=== PATIENT | male | born 1955 | race African-American/Black ===

== ENCOUNTER 2020-02-03 11:33 | Inpatient (IN) | payer MEDICARE, OTHER ==
[~2020-02-03] VITALS: Ht 175.3 cm; Wt 121.1 kg
[2020-02-03 12:16] LABS: CLARITY URINE CLOUDY (CLEAR); COLOR URINE DARK YELLOW (YELLOW); KETONES URINE NEGATIVE (NEGATIVE); LEUKOCYTE ESTERASE URINE 3+ (NEGATIVE); NITRITE URINE NEGATIVE (NEGATIVE); OCCULT BLOOD URINE NEGATIVE (NEGATIVE); PH URINE 5.5 (4.5-8.0); PROTEIN URINE TRACE (NEGATIVE); SPECIFIC GRAVITY URINE 1.012 (1.005-1.030)
[2020-02-03 13:02] LABS: BASOPHILS % 0.7 % (0.0-2.0); EOSINOPHILS % 5.4 % (0.0-5.0); HEMATOCRIT. 26.5 % (42.0-52.0); HEMOGLOBIN. 8.9 g/dL (14.0-18.0); LYMPHOCYTES % 20.6 % (20.0-50.0); MEAN CORPUSCULAR VOLUME 88.9 fL (80.0-94.0); MEAN PLATELET VOLUME 8.2 fl (7.4-10.4); MONOCYTES % 10.4 % (2.0-8.0); NEUTROPHILS % 62.9 % (40.0-76.0); PLATELET 142 x1000/uL (130-400); RED BLOOD CELL COUNT 2.98 mill/uL (4.7-6.1); RED CELL DISTRIBUTION WIDTH 15.6 % (11.6-14.6)
[2020-02-03 13:10] LABS: CHLORIDE 108 mEq/L (98-107)
[2020-02-03 13:13] LABS: INR 1.1
[2020-02-03] MEDS ORDERED: SODIUM CHLORIDE 0.9% 500 ML IV ONE (13:15)
[2020-02-03] MEDS ORDERED: FLUCONAZOLE 100MG TABLET PO ONE (13:15)
[2020-02-03] MEDS ORDERED: CEFTRIAXONE 1 G PREMIX 50 ML IV ONE (13:15)
[2020-02-03] MEDS ORDERED: ONDANSETRON HCL 4MG/2ML INJ IV PRN (15:45)
[2020-02-03] MEDS ORDERED: CEFTRIAXONE 1 G PREMIX 50 ML IV SCH (15:45)
[2020-02-03] MEDS ORDERED: POTASSIUM CHLORIDE INJ 40 MEQ in DEXT 5% WATER 250 ML IV NR (17:00)
[2020-02-03] MEDS: PANTOPRAZOLE SODIUM 40 MG/VIAL IV SCH (22:00)
[2020-02-04] MEDS ORDERED: DEXTROSE 50% WATER 50ML SYRINGE IV PRN (00:15)
[2020-02-04] MEDS ORDERED: TAMS-11 PO (00:24)
[2020-02-04] MEDS ORDERED: SITA1TAB6 MT (00:24)
[2020-02-04 01:26] VITALS: BP 116/65
[2020-02-04] MEDS: DEXT 5%/0.45% NACL 1000ML 1,000 ML IV SCH ×2 (02:32→08:18)
[2020-02-04] MEDS ORDERED: NON FORMULARY PATIENT HOME MED XX SCH (03:00)
[2020-02-04] MEDS: INSULIN LISPRO 100 UNITS/ML SUBCUT SCH ×3 (07:50→17:50)
[2020-02-04 08:00] VITALS: BP 127/75
[2020-02-04] MEDS: BLOOD SUGAR DIAGNOSTIC STRIP TEST SCH ×3 (08:06→17:59)
[2020-02-04] MEDS: PANTOPRAZOLE SODIUM 40 MG/VIAL IV SCH (08:08)
[2020-02-04] MEDS ORDERED: CEFTRIAXONE 1 G PREMIX 50 ML IV SCH (09:00)
[2020-02-04] MEDS ORDERED: TAMSULOSIN HCL 0.4MG SR CAPSULE PO SCH (09:00)
[2020-02-04] MEDS ORDERED: LINAGLIPTIN 5MG TABLET PO SCH (09:00)
[2020-02-04] MEDS ORDERED: ENOXAPARIN 80MG/0.8ML SYR SUBCUT SCH (10:00)
[2020-02-04 10:15] LABS: HEMATOCRIT. 25.5 % (42.0-52.0); HEMOGLOBIN. 8.5 g/dL (14.0-18.0); MEAN CORPUSCULAR HEMOGLOBIN 29.9 pg (28.0-32.0); MEAN CORPUSCULAR VOLUME 89.6 fL (80.0-94.0); MEAN PLATELET VOLUME 8.4 fl (7.4-10.4); PLATELET 131 x1000/uL (130-400); RED BLOOD CELL COUNT 2.84 mill/uL (4.7-6.1)
[2020-02-04] MEDS ORDERED: ENOXAPARIN 120MG/0.8ML SYR SUBCUT SCH (10:30)
[2020-02-04 10:33] LABS: CHLORIDE 107 mEq/L (98-107)
[2020-02-04 12:00] VITALS: BP 122/67
[2020-02-04] MEDS ORDERED: LORAZEPAM 2MG/ML CPJ IV PRN (12:15)
[2020-02-04 13:39] LABS: PLATELET ESTIMATE NORMAL
[2020-02-04 16:20] VITALS: BP 144/88
[2020-02-04] MEDS ORDERED: VANCOMYCIN 2,000 MG in DEXT 5% WATER 500 ML IV NR (20:00)
[2020-02-05] MEDS ORDERED: VANCOMYCIN 1500MG in DEXTROSE 5% WATER 250ML IV SCH (15:00)
[2020-02-06] MEDS ORDERED: CEFAZOLIN 1000MG PREMIX 50 ML IV SCH (09:00)
== END 2020-02-04 19:10 | disposition short-term general hospital (02) | DRG 720 ==
LOC: ER 11:55 → EDBEDREQ 14:48 → ENRESERV 19:44 → 6WST 21:52
PROVIDERS: ADMIT Internal Medicine; ATTEND Internal Medicine
DX: A41.9 Sepsis, unspecified organism (principal); E43 Unspecified severe protein-calorie malnutrition; E87.8 Other disorders of electrolyte and fluid balance, not elsewhere classified; I82.413 Acute embolism and thrombosis of femoral vein, bilateral; F03.90 Unspecified dementia, unspecified severity, without behavioral disturbance, psychotic disturbance, mood disturbance, and anxiety; E11.9 Type 2 diabetes mellitus without complications; D64.9 Anemia, unspecified; F32.9 Major depressive disorder, single episode, unspecified; I10 Essential (primary) hypertension; E87.6 Hypokalemia; I25.10 Atherosclerotic heart disease of native coronary artery without angina pectoris; N39.0 Urinary tract infection, site not specified; N40.0 Benign prostatic hyperplasia without lower urinary tract symptoms; R47.02 Dysphasia; R29.6 Repeated falls; I82.433 Acute embolism and thrombosis of popliteal vein, bilateral; E80.6 Other disorders of bilirubin metabolism; Z88.8 Allergy status to other drugs, medicaments and biological substances; Z78.1 Physical restraint status; Z89.431 Acquired absence of right foot; Z68.39 Body mass index [BMI] 39.0-39.9, adult
CPT/HCPCS: 36415; 71045; 80048; 80053; 81003; 82962; 83605; 83880; 84484; 85025; 87077; 87186; 93005; 93970; 99285; C9113; J0696; J1650; J2405; J3370; J3480; J7040; J7060